=== PATIENT | female | born 1995 | race Two or more races ===

== ENCOUNTER 2019-05-09 19:12 | Emergency (ER) | payer OTHER ==
[2019-05-09] MEDS ORDERED: ONDANSETRON HCL INJ/PF 4 MG/2 ML SDV IV ONE ×2 (19:44→23:07)
[2019-05-09] MEDS ORDERED: NORMAL SALINE 1000 ML 1,000 ML IV ONE (19:44)
[2019-05-09] MEDS ORDERED: FENTANYL CITRATE INJ/PF 100 MCG/2 ML AMPUL IV ONE (19:45)
--- NOTE | 2019-05-09 19:46 | ER Document Report ---
ED Medical Screen (RME) - General Chief Complaint: Abdominal Pain Stated Complaint: UPPER STOMACH PAIN Time Seen by Provider: 05/09/19 19:41 Mode of Arrival: Ambulatory Information source: Patient Notes: Patient presents with right upper quadrant abdominal pain since 130. Patient states pain radiates through to her back. Patient does report nausea and vomiting. No fever, no cough or cold symptoms. Patient denies any urinary symptoms. I have greeted and performed a rapid initial assessment of this patient. A comprehensive ED assessment and evaluation of the patient, analysis of test results and completion of the medical decision making process will be conducted by additional ED providers. - Related Data Allergies/Adverse Reactions: No Known Allergies Allergy (Unverified 05/09/19 19:41) Home Medications: control Physical Exam - Vital signs Vitals: Temp Pulse BP Pulse Ox 98.1 F 116 H 149/80 H 97 05/09/19 19:17 05/09/19 19:17 05/09/19 19:17 05/09/19 19:17 - Abdominal Tenderness: Tender - RUQ Course - Vital Signs Vital signs: Temp Pulse Resp BP Pulse Ox 98.1 F 116 H 149/80 H 97 05/09/19 19:17 05/09/19 19:17 05/09/19 19:17 05/09/19 19:17
[2019-05-09 20:02] LABS: ABSOLUTE BASOPHILS # (AUTO) 0.1 10^3/uL (0.0-0.2); ABSOLUTE EOSINOPHILS # (AUTO) 0.3 10^3/uL (0.0-0.6); ABSOLUTE LYMPHOCYTES (AUTO) 2.9 10^3/uL (0.5-4.7); ABSOLUTE MONOCYTES (AUTO) 0.7 10^3/uL (0.1-1.4); ABSOLUTE NEUT (AUTO) 10.9 10^3/uL (1.7-8.2); BASOPHILS % (AUTO) 0.8 % (0-2); HEMATOCRIT 41.1 % (36.0-47.0); HEMOGLOBIN 13.6 g/dL (12.0-15.5); LYMPHOCYTES % (AUTO) 19.5 % (13-45); MEAN CORPUSCULAR HEMOGLOBIN 26.9 pg (27.0-33.4); MEAN CORPUSCULAR HGB CONC 33.1 g/dL (32.0-36.0); MEAN CORPUSCULAR VOLUME 81 fl (80-97); MONOCYTES % (AUTO) 4.6 % (3-13); PLATELET COUNT 385 10^3/uL (150-450); RED BLOOD COUNT 5.06 10^6/uL (3.72-5.28); RED CELL DISTRIBUTION WIDTH 13.7 % (11.5-14.0); SEGMENTED NEUTROPHILS % (AUTO) 73.1 % (42-78); TOTAL CELLS COUNTED % (AUTO) 100 %; WHITE BLOOD COUNT 14.9 10^3/uL (4.0-10.5)
[2019-05-09 20:19] LABS: ALBUMIN 4.3 g/dL (3.5-5.0); ALKALINE PHOSPHATASE 101 U/L (38-126); ANION GAP 11 (5-19); ASPARTATE AMINO TRANSFERASE 17 U/L (14-36); BILIRUBIN,DIRECT 0.1 mg/dL (0.0-0.4); BILIRUBIN,TOTAL 0.3 mg/dL (0.2-1.3); BLOOD UREA NITROGEN 11 mg/dL (7-20); CALCIUM 9.8 mg/dL (8.4-10.2); CARBON DIOXIDE 24 mmol/L (22-30); CHLORIDE 106 mmol/L (98-107); GLUCOSE 107 mg/dL (75-110); POTASSIUM 4.1 mmol/L (3.6-5.0); TOTAL PROTEIN 7.9 g/dL (6.3-8.2)
[2019-05-09 20:38] LABS: APPEARANCE,URINE CLEAR; BILIRUBIN,URINE NEGATIVE (NEGATIVE); COLOR,URINE YELLOW; GLUCOSE, URINE NEGATIVE (NEGATIVE); KETONES,URINE NEGATIVE (NEGATIVE); LEUKOCYTE ESTERASE,URINE NEGATIVE (NEGATIVE); NITRITE,URINE NEGATIVE (NEGATIVE); PROTEIN,URINE NEGATIVE (NEGATIVE); URINE SPECIFIC GRAVITY 1.025; UROBILINOGEN,URINE NEGATIVE mg/dL (<2.0)
--- NOTE | 2019-05-09 20:45 | RADIOLOGY REPORT (SQ) ---
EXAM DESCRIPTION: XR CHEST 2 VIEWS COMPLETED DATE/TME: 05/09/2019 19:44 CLINICAL HISTORY: 24 years, Female, RUQ pain COMPARISON: None. NUMBER OF VIEWS: TECHNIQUE: LIMITATIONS: None. FINDINGS: No evidence of pulmonary infiltrate or pleural effusion. The heart and mediastinum are unremarkable. Pulmonary vascularity appears normal. IMPRESSION: Normal chest x-ray. copyright 2010 [email or web address]- All Rights Reserved
[2019-05-09] MEDS ORDERED: MORPHINE SULFATE 10 MG/ML INJ IV ONE (21:03)
[2019-05-09] MEDS ORDERED: HYDROMORPHONE HCL INJ/PF 2 MG/ML AMPULE IV ONE (21:50)
--- NOTE | 2019-05-09 22:19 | RADIOLOGY REPORT (SQ) ---
EXAM DESCRIPTION: US ABDOMEN LIMITED COMPLETED DATE/TME: 05/09/2019 19:44 CLINICAL HISTORY: 24 years, Female, RUQ pain COMPARISON: None. TECHNIQUE: Limited right upper quadrant ultrasound LIMITATIONS: None. FINDINGS: Echogenic appearance to the liver consistent with fatty infiltrative change. Cholelithiasis. No gallbladder wall thickening or pericholecystic fluid. Negative sonographic Hernandez sign. CBD measures 3 mm. Visualized pancreas, abdominal aorta, inferior vena cava, right kidney unremarkable. No ascites IMPRESSION: Fatty infiltrative change to the liver. Cholelithiasis. No sonographic evidence for cholecystitis copyright 2010 [employer]- All Rights Reserved
[2019-05-09] MEDS ORDERED: KETOROLAC TROMETHAMINE INJ/PF 30 MG/1 ML SDV IV ONE (22:49)
--- NOTE | 2019-05-09 22:51 | ER Document Report ---
Entered by RITA MONTES SCRIBE 05/09/19 2154 Acting as scribe for:FABIÁN CALVERT IV, MD ED General - General Chief Complaint: Abdominal Pain Stated Complaint: UPPER STOMACH PAIN Time Seen by Provider: 05/09/19 19:41 Mode of Arrival: Ambulatory Information source: Patient, [facility] Records Notes: Patient is a 24 year old female presenting to the emergency department complaining of right upper abdominal pain. Patient states that the pain began at 13:30 today, her last oral intake was breakfast this morning. She states she had a pain similar to this several weeks ago however she has never had a pain this bad before. Patient states she has vomited self inducing, she denies recent fever, chills, or having a history of gallbladder problems. - HPI Notes: Patient is a 24-year-old female who presents complaining of right upper quadrant abdominal pain radiating around to the right side of her back that has been going on for 1 day. Patient states she had a similar pain about 2 weeks ago but has no prior history of gallbladder disease. Patient states she has tried to self induce nausea and vomiting to alleviate the pain that she had in her abdomen. Patient denies fever, chills. - Related Data Allergies/Adverse Reactions: No Known Allergies Allergy (Unverified 05/09/19 19:41) Home Medications: control Past Medical History - General Information source: Patient, [facility] Records - Social History Smoking Status: Never Smoker Cigarette use (# per day): No Chew tobacco use (# tins/day): No Smoking Education Provided: No Family History: Reviewed & Not Pertinent Patient has suicidal ideation: No Patient has homicidal ideation: No Review of Systems - Review of Systems Constitutional: No symptoms reported. denies: Chills, Fever EENT: No symptoms reported Cardiovascular: No symptoms reported Respiratory: No symptoms reported Gastrointestinal: See HPI, Abdominal pain, Vomiting. denies: Nausea Genitourinary: No symptoms reported Female Genitourinary: No symptoms reported Musculoskeletal: No symptoms reported Skin: No symptoms reported Hematologic/Lymphatic: No symptoms reported Neurological/Psychological: No symptoms reported -: Yes All other systems reviewed and negative Physical Exam - Vital signs Vitals: Temp Pulse BP Pulse Ox 98.1 F 116 H 149/80 H 97 05/09/19 19:17 05/09/19 19:17 05/09/19 19:17 05/09/19 19:17 - Notes Notes: Physical Exam: General: Alert, crying. HEENT: Normocephalic. Atraumatic. PERRL. Extraocular movements intact. Oropharynx clear. Neck: Supple. Non-tender. Respiratory: No respiratory distress. Clear and equal breath sounds bilaterally. Cardiovascular: Regular rate and rhythm. Abdominal: Hernandez's sign. Otherwise Non-tender. No distension. Normal Bowel Sounds. Back: No gross abnormalities. Extremities: Moves all four extremities. Upper extremities: Normal inspection. Normal ROM. Lower extremities: Normal inspection. No edema. Normal ROM. Neurological: Normal cognition. AAOx4. Normal speech. Psychological: Normal affect. Normal Mood. Skin: Warm. Dry. Normal color. Course - Re-evaluation Re-evalutation: 05/09/19 22:49 Patient is still complaining of significant sharp abdominal pain. Patient has not received the milligram of Dilaudid that was ordered earlier. This MD spoke to the patient's nurse, the nurse going to give the Dilaudid now along with some Toradol and this MD will reevaluate the patient to see if we are obtaining pain relief. 05/10/19 00:33 Patient states her pain is much better at this point. Diagnosis and follow-up again discussed with patient and patient's spouse who is present in the room. All questions were answered prior to discharge. Emergency signs and symptoms, reasons to return to the ED by calling 911 discussed with patient and patient spouse. - Vital Signs Vital signs: Temp Pulse Resp BP Pulse Ox 98.0 F 88 18 116/71 99 05/10/19 00:16 05/10/19 00:16 05/10/19 00:16 05/10/19 00:16 05/10/19 00:16 - Laboratory Result Diagrams: 05/09/19 19:50 05/09/19 19:50 Laboratory results interpreted by me: 05/09/19 05/09/19 19:50 19:50 WBC 14.9 H MCH 26.9 L Absolute Neuts (auto) 10.9 H Urine Blood SMALL H - Diagnostic Test Radiology reviewed: Reports reviewed Discharge - Discharge Clinical Impression: Cholelithiasis Condition: Good Disposition: HOME, SELF-CARE Instructions: Gallbladder Disease ([facility]) Additional Instructions: Return to the Emergency Department without delay if any worse. HOME CARE INSTRUCTIONS & INFORMATION: Thank you for choosing us for your medical needs. We hope you're satisfied with the care you received. After you leave, you must properly care for your problem and, at the same time, observe its progress. Any condition can change. Some illnesses can change rapidly over hours or days. If your condition worsens, return to the Emergency Department or see your physician promptly. ABOUT YOUR X-RAYS AND EKG'S: If you had an EKG or X-rays taken, they have been read by the Emergency Physician. The X-rays and EKG's will also be read by a Radiologist or Mailroom Messenger within 24 hours. If discrepancies are noted, you will be notified by telephone. Please be certain the ED has a correct telephone number & address where you can be reached. Also, realize that some fractures or abnormalities do not show up on initial X-rays. If your symptoms continue, see your physician. ABOUT YOUR LABORATORY TEST: If you had laboratory tests, the results have been reviewed by the Emergency Physician. Some test results (for example cultures) may not be available for several days. You will be contacted if any test result shows you need additional treatment. Please be certain the ED has a correct telephone number and address where you can be reached. ABOUT YOUR MEDICATIONS: You will receive instructions on how to take your medic ine on the prescription label you receive. Additional information may be provided by the Pharmacy. If you have questions afterwards, call the ED for clarification or further instructions. Some prescribed medications may cause drowsiness. Do not perform tasks such as driving a car or operating machinery without consulting your Pharmacist. If you feel you need a refill of pain medication, your condition will need re-evaluation. Please do not call for a refill of any medication. ABOUT YOUR SIGNATURE: Signature of this document acknowledges to followin. Understanding that you received emergency treatment and that you may be released before al medical problems are known or treated. Please be certain the ED has a correct phone number & address where you can be reached. 2. Acknowledgement that you will arrange for follow-up care as recommended. 3. Authorization for the Emergency Physician to provide information to your follow-up Physician in order to maximize your care. AT ANY TIME, IF YOUR SYMPTOMS CHANGE SIGNIFICANTLY OR WORSEN OR YOU DEVELOP NEW SYMPTOMS, RETURN TO THE EMERGENCY DEPARTMENT IMMEDIATELY FOR RE-EVALUATION. OUR GOAL IS TO PROVIDE EXCELLENT MEDICAL CARE! WE HOPE THAT WE HAVE MET YOUR EXPECTATIONS DURING YOUR EMERGENCY DEPARTMENT VISIT AND THAT YOU FEEL YOU HAVE RECEIVED EXCELLENT CARE! Prescriptions: Oxycodone HCl/Acetaminophen [Percocet 5-325 mg Tablet] 1 tab PO Q6H PRN 3 Days #15 tablet PRN Reason: Ondansetron [Zofran Odt 4 mg Tablet] 1 - 2 tab PO Q4H PRN #20 tab.rapdis PRN Reason: For Nausea/Vomiting Referrals: PHONG PEDERSEN MD [ACTIVE STAFF] - 05/11/19 (CALL ON 05/11/19 TO SCHEDULE FOLLOW UP APPOINTMENT ) I personally performed the services described in the documentation, reviewed and edited the documentation which was dictated to the scribe in my presence, and it accurately records my words and actions.
[2019-05-10 00:19] VITALS: BP 116/71
[2019-05-10] MEDS ORDERED: HYDROCODONE/ACETAMINOPHEN 5-325 MG (6 TAB/ER DISP) PO PRN (00:34)
== END 2019-05-10 00:55 | disposition home or self-care (01) ==
LOC: ER 19:12
DX: K80.20 Calculus of gallbladder without cholecystitis without obstruction (principal); R10.10 Upper abdominal pain, unspecified; R11.10 Vomiting, unspecified
CPT/HCPCS: 96376; 99284; 96361; 96374; 96375; 36415; 83690; 84703; 85025; 80053; 81001; 71046; 76705; J3010; J1885; J2270; J1170; J2405; J7030

== ENCOUNTER 2019-05-27 11:46 | Observation (INO) | payer OTHER ==
[2019-05-25 11:08] LABS: HEMOGLOBIN 13.4 g/dL (12.0-15.5); MEAN CORPUSCULAR HEMOGLOBIN 26.8 pg (27.0-33.4); MEAN CORPUSCULAR HGB CONC 33.6 g/dL (32.0-36.0); MEAN CORPUSCULAR VOLUME 80 fl (80-97); PLATELET COUNT 377 10^3/uL (150-450); RED BLOOD COUNT 5.01 10^6/uL (3.72-5.28); RED CELL DISTRIBUTION WIDTH 13.5 % (11.5-14.0); WHITE BLOOD COUNT 12.2 10^3/uL (4.0-10.5)
[2019-05-25 11:49] LABS: ALBUMIN 3.9 g/dL (3.5-5.0); ALKALINE PHOSPHATASE 100 U/L (38-126); AMYLASE 60 U/L (30-110); ANION GAP 14 (5-19); ASPARTATE AMINO TRANSFERASE 17 U/L (14-36); BILIRUBIN,DIRECT 0.1 mg/dL (0.0-0.4); BILIRUBIN,TOTAL 0.5 mg/dL (0.2-1.3); BLOOD UREA NITROGEN 13 mg/dL (7-20); CALCIUM 9.3 mg/dL (8.4-10.2); CARBON DIOXIDE 23 mmol/L (22-30); CHLORIDE 103 mmol/L (98-107); GLUCOSE 86 mg/dL (75-110); POTASSIUM 4.4 mmol/L (3.6-5.0); TOTAL PROTEIN 7.3 g/dL (6.3-8.2)
[~2019-05-27 11:46] MED LIST: ACETAMINOPHEN 325 MG TABLET PO PRN; CEFAZOLIN SODIUM 1 GM in DEXTROSE 5%-WATER 50 ML IV PRN; DEXAMETHASONE SOD PHOSPHATE INJ 4 MG/1 ML VIAL ONE; GLYCOPYRROLATE 1 MG/5 ML VIAL ONE; KETOROLAC TROMETHAMINE 60 MG/2 ML SDV ONE; LACTATED RINGERS 1000 ML IV PRN; LIDOCAINE 0.5% INJ-PF (5 MG/ML) 50 ML SDV SUBCUT PRN; LIDOCAINE 2% INJ-PF (20 MG/ML) 2 ML AMPUL ONE; METOCLOPRAMIDE HCL INJ/PF 10 MG/2 ML SDV ONE; METRONIDAZOLE 500 MG/NS RTU 500 MG/100 ML RTUPB IV ONE; METRONIDAZOLE 500 MG/NS RTU 500 MG/100 ML RTUPB IV PRN; NEOSTIGMINE METHYLSULFATE 10 MG/10 ML VIAL ONE; ONDANSETRON HCL INJ/PF 4 MG/2 ML SDV ONE; ROCURONIUM BROMIDE INJ 50 MG/5 ML VIAL IV ONE
[2019-05-27] MEDS ORDERED: BUPIVACAINE HCL 0.25 % INJ/PF (2.5 MG/1 ML) 30 ML VIAL ONE (15:36)
[2019-05-27] MEDS ORDERED: HYDROMORPHONE HCL INJ/PF 2 MG/ML AMPULE ONE (15:37)
[2019-05-27] MEDS ORDERED: MIDAZOLAM 2 MG/2 ML INJ ONE ×2 (15:38→21:54)
[2019-05-27] MEDS ORDERED: PROPOFOL INJ 200 MG/20 ML VIAL IV ONE ×2 (15:38→21:54)
[2019-05-27] MEDS ORDERED: SUGAMMADEX SODIUM 200 MG/2 ML SDV IV ONE (15:38)
[2019-05-27] MEDS ORDERED: BUPIVACAINE HCL 0.25 % INJ/PF (2.5 MG/1 ML) 30 ML VIAL INJ ONE (16:22)
[2019-05-27] MEDS ORDERED: ONDANSETRON HCL INJ/PF 4 MG/2 ML SDV IV PRN ×3 (16:23→23:18)
[2019-05-27] MEDS ORDERED: PROMETHAZINE HCL INJ 25 MG/1 ML VIAL IV PRN ×4 (16:23→22:36)
[2019-05-27] MEDS ORDERED: FENTANYL CITRATE INJ/PF 100 MCG/2 ML AMPUL IV PRN ×6 (16:23→22:36)
[2019-05-27] MEDS ORDERED: OXYCODONE-ACETAMINOPHEN 5-325 MG TABLET PO PRN ×4 (16:23→23:18)
[2019-05-27] MEDS ORDERED: MEPERIDINE HCL/PF INJ 25 MG/1 ML DISP.SYRIN IV PRN (16:23)
[2019-05-27] MEDS ORDERED: DIPHENHYDRAMINE HCL 50 MG/ML VIAL IV PRN ×2 (16:23→22:36)
--- NOTE | 2019-05-27 16:38 | Operative Report ---
Nonrecallable Operative Report DATE OF SURGERY: 05/27/19 PREOPERATIVE DIAGNOSIS: symptomatic cholelithiasis POSTOPERATIVE DIAGNOSIS: symptomatic cholelithiasis OPERATION: laparoscopic cholecystectomy SURGEON: BRITNI ROQUE ANESTHESIA: GA TISSUE REMOVED OR ALTERED: gallbladder COMPLICATIONS: none ESTIMATED BLOOD LOSS: 25cc INTRAOPERATIVE FINDINGS: see dictation PROCEDURE: After obtaining informed consent, the patient was taken to the operating room. General Anesthesia was induced; the arms were extended, and the abdomen was exposed, and prepped and draped in a sterile fashion. Instrumentation was set up for laparoscopic cholecystectomy. Surgical plan and surgical timeout were conducted. A vertical incision was made above the umbilicus, and a verres needle was inserted uneventfully into the peritoneal cavity. Pneumoperitoneum was established. The verres needle was removed and a10mm trocar was inserted and a 10mm laparoscope was inserted. Visualization of the peritoneal cavity confirmed safe uneventful entry. Under direct visualization 3 additional 5 mm ports were est ablished, one in the subxiphoid position and second in the subcostal position. Visualization of the hepatobiliary anatomy revealed no anatomic variations. A grasper was placed on the fundus of the gallbladder and the gallbladder is elevated over the right surface of the liver; a second grasper was used to grasp the infundibulum of the gallbladder. The neck of the gallbladder and junction with the cystic duct was dissected out. The Cystic artery was in its usual location medial and cephalad to the cystic duct. The cystic artery was surrounded with a right angle clamp, clipped twice proximally and divided with laparoscopic scissors. We now opened the triangle of Calot by dividing the peritoneal reflection on both the medial and lateral sides of the cystic duct infundibular junction. The critical view was obtained. We now milked the cystic duct of any possible stones, clipped the cystic duct approximately 2 times once distally and divided with scissors. The gallbladder was now removed from the undersurface of the liver using hook cautery dissection. Graspers were repositioned and the gallbladder was removed uneventfully from the abdominal cavity through the super umbilical port site incision. The specimen was examined, then passed off to pathology for permanent analysis. We returned to the peritoneal cavity check for bleeding, and evidence of bile leak, and there was none. We Confirmed satisfactory placement of clips on cystic duct and cystic artery were secured . At this point we felt the operation was complete. The subcutaneous tissue was then anesthetized with quarter percent Marcaine Sponge and needle counts are correct. All ports removed under direct visualization pneumoperitoneum evacuated, and 5 mm port wounds closed with 3-0 Vicryl suture, benzoin and Steri-Strips. The patient was extubated, and taken to the recovery room in stable condition.
--- NOTE | 2019-05-27 16:39 | Discharge Summary ---
Discharge Summary (SDC) - Discharge Final Diagnosis: symptomatic cholelithasis Date of Surgery: 05/27/19 Discharge Date: 05/27/19 Condition: Good Discharge Activity: Activity As Tolerated, No Lifting Over 10 Pounds, No Lifting/Push/Pulling Report the Following to Your Physician Immediately: Shortness of Breath, Vomiting, Fever over 101 Degrees - pt needs a f/u with me in 7-10 days.
[2019-05-27] MEDS: ACETAMINOPHEN 1,000 MG/100 ML RTUPB IV ONE ×2 (17:00→17:05)
[2019-05-27] MEDS ORDERED: FENTANYL CITRATE INJ/PF 100 MCG/2 ML AMPUL ONE ×2 (17:20→21:54)
[2019-05-27] MEDS ORDERED: PROMETHAZINE HCL INJ 25 MG/1 ML VIAL ONE (17:27)
[2019-05-27 21:16] LABS: HEMATOCRIT 32.2 % (36.0-47.0); MEAN CORPUSCULAR HEMOGLOBIN 26.4 pg (27.0-33.4); MEAN CORPUSCULAR HGB CONC 32.8 g/dL (32.0-36.0); MEAN CORPUSCULAR VOLUME 81 fl (80-97); RED BLOOD COUNT 4.01 10^6/uL (3.72-5.28); RED CELL DISTRIBUTION WIDTH 13.4 % (11.5-14.0)
[2019-05-27 21:18] LABS: HEMOGLOBIN 10.6 g/dL (12.0-15.5)
[2019-05-27 21:24] LABS: WHITE BLOOD COUNT 38.5 10^3/uL (4.0-10.5)
[2019-05-27 21:40] LABS: ABSOLUTE LYMPHOCYTES# (MANUAL) 2.3 10^3/uL (0.5-4.7); BAND NEUTROPHILS % (MANUAL) 4 % (3-5); BASOPHILS % (MANUAL) 0 % (0-2); EOSINOPHILS % (MANUAL) 0 % (0-6); LYMPHOCYTES % (MANUAL) 6 % (13-45); MONOCYTES % (MANUAL) 0 % (3-13); SEGMENTED NEUTROPHILS % (MAN) 90 % (42-78); TOTAL CELLS COUNTED 100
[2019-05-27 21:42] LABS: PLATELET CLUMPS PRESENT; PLATELET COUNT 483 10^3/uL (150-450)
[2019-05-27 21:43] LABS: PLATELET COMMENT INCREASED
[2019-05-27] MEDS ORDERED: BUPIVACAINE INJ/PF LIPOSOME/PF 266 MG/20 ML SDV ONE (21:54)
--- NOTE | 2019-05-27 23:33 | Operative Report ---
Nonrecallable Operative Report DATE OF SURGERY: 05/27/19 PREOPERATIVE DIAGNOSIS: Postoperative bleeding POSTOPERATIVE DIAGNOSIS: Postoperative bleeding OPERATION: Agnostic laparoscopy abdominal washout control of postoperative bleeding SURGEON: BRITNI ROQUE ANESTHESIA: GA TISSUE REMOVED OR ALTERED: None COMPLICATIONS: None ESTIMATED BLOOD LOSS: 1000 cc INTRAOPERATIVE FINDINGS: See dictation PROCEDURE: Indications for procedure this is a 24-year-old female who is approximately 6 hours post laparoscopic cholecystectomy for symptomatic cholelithiasis. She was noted in recovery room to become hypotensive and a repeat hemoglobin showed a three-point drop. She was complaining of the nausea and shoulder pain. After assessing the patient I felt that she is undergoing postoperative hemorrhage and therefore scheduled her for this procedure. Procedure patient was brought to the operating room awake alert stable condition placed in the operative table supine position induced under general anesthesia intubated after appropriate timeout site verification the abdominal wall was prepped and draped in usual sterile fashion. The infraumbilical incision site was opened with a Metzenbaum scissors dividing the Biosyn suture that was previously placed and the varies needle was placed into the abdominal cavity the abdomen was insufflated 6 L of CO2 gas. A 10 mm port was placed into this incision similarly the 3 other 5 mm incisions were cannulated with 5 mm ports. Intra-abdominal visualization revealed no evidence of Veress needle or trocar injury however there was large amount of clot noted over on top of the omentum as well as in the left upper quadrant and in the pelvis. In the right upper quadrant underneath the liver and the gallbladder fossa there was also a large amount of clot that appeared to be fresh. This was suctioned free and we identified the clip on the cystic artery and noted to be intact without evidence of any leakage. Liver bed also appeared to be relatively dry except for a couple of small areas at the inferior aspect which were controlled with Bovie cautery. Once this was done I spent some time removing all the clot from the peritoneal surfaces as well as on top of the omentum in the right and left upper quadrant in the pelvis. We removed approximately 1000 cc of old clot. The abdominal cavity was then irrigated with normal saline suctioned dry irrigated the pelvis the left and right upper quadrant in the gallbladder fossa. We went back to the gallbladder fossa and examined it thoroughly and noted no further evidence of bleeding. Because there was no active bleeding I elected to leave a Jarod-Ritter drain in the gallbladder fossa and brought out through the 5 mm port site in the right lower quadrant we then released the pneumoperitoneum we closed the umbilical port site with 0 Vicryl in the fascia then closed all the other 3 skin incisions with intracuticular Biosyn and tacked the Jarod-Ritter drain to the right lower quadrant incision with 1 stitch of 2-0 nylon sterile dressing was applied which completed the procedure patient was awakened in the operating operating room extubated transferred recovery in stable condition Estimated blood loss was 1000 cc sponge and needle counts were correct x2
[2019-05-27] MEDS ORDERED: ACETAMINOPHEN 1,000 MG/100 ML RTUPB IV ONE (23:41)
[2019-05-27] MEDS ORDERED: MORPHINE SULFATE 10 MG/ML INJ ONE (23:41)
[2019-05-28] MEDS: POTASSI CL 20 MEQ/D5-1/2NS 1L 1,000 ML IV PRN ×2 (01:09→09:33)
[2019-05-28] MEDS: ACETAMINOPHEN INJ/PF 1000 MG/100 ML SDV IV SCH ×2 (01:09→05:51)
[2019-05-28] MEDS: MORPHINE SULFATE 10 MG/ML INJ IV PRN ×2 (01:52→08:00)
[2019-05-28 04:54] VITALS: BP 97/51
[2019-05-28] MEDS ORDERED: CEFAZOLIN 1 GM/D5W RTU 1 GM/50 ML RTUPB IV SCH (06:00)
[2019-05-28] MEDS ORDERED: CEFAZOLIN 1 GM/D5W RTU 1 GM/50 ML RTUPB IV ONE (06:01)
[2019-05-28 07:03] LABS: ABSOLUTE LYMPHOCYTES (AUTO) 1.4 10^3/uL (0.5-4.7); ABSOLUTE MONOCYTES (AUTO) 0.5 10^3/uL (0.1-1.4); ABSOLUTE NEUT (AUTO) 12.9 10^3/uL (1.7-8.2); BASOPHILS % (AUTO) 0.2 % (0-2); HEMATOCRIT 25.2 % (36.0-47.0); HEMOGLOBIN 8.6 g/dL (12.0-15.5); LYMPHOCYTES % (AUTO) 9.4 % (13-45); MEAN CORPUSCULAR HEMOGLOBIN 27.4 pg (27.0-33.4); MEAN CORPUSCULAR HGB CONC 34.3 g/dL (32.0-36.0); MEAN CORPUSCULAR VOLUME 80 fl (80-97); MONOCYTES % (AUTO) 3.7 % (3-13); PLATELET COUNT 300 10^3/uL (150-450); RED BLOOD COUNT 3.16 10^6/uL (3.72-5.28); RED CELL DISTRIBUTION WIDTH 13.5 % (11.5-14.0); SEGMENTED NEUTROPHILS % (AUTO) 86.7 % (42-78); TOTAL CELLS COUNTED % (AUTO) 100 %; WHITE BLOOD COUNT 14.9 10^3/uL (4.0-10.5)
[2019-05-28] MEDS: FAMOTIDINE INJ/PF 20 MG/2 ML SDV IV SCH ×2 (07:41→09:32)
[2019-05-28 08:51] LABS: PATH REVIEW PATHOLOGIST REVIEWED
--- NOTE | 2019-05-28 09:04 | PDOC DISCHARGE SUMMARY ---
General - Admit/Disc Date/PCP Admission Date/Primary Care Provider: 05/27/19 23:47 Discharge Date: 05/28/19 - Discharge Diagnosis Final Diagnosis: symptomatic cholelilthiasis, post op bleeding - Assessment Summary: She is a 24-year-old female who was admitted for elective laparoscopic cholecystectomy on the day of admission. She was taken to the operating room where she underwent a laparoscopic cholecystectomy. Postoperatively she initially did well however became somewhat hypotensive in the recovery room approximately 4 to 6 hours postop and was noted to have a low hemoglobin. Later in the evening she was taken back to the operating for diagnostic laparoscopy at which time there was a approximately 800 cc of blood removed from the abdominal cavity control of bleeding from the liver edge. She was admitted and watched overnight with a Jarod-Ritter drain in place the following morning she was doing well the Jarod-Ritter drain had minimal drainage and her hemoglobin remained stable was removed and she was started on a clear liquid diet which was advanced to full liquid diet. She is tolerating full liquid diet well she is able to ambulate without dizziness and ready for discharge home today. He will be followed up in 7 to 10 days after discharge. - Additional Information Resuscitation Status: Full Code - Patient needs a follow-up in 7 to 10 days after discharge with me in surgical clinic. Discharge Diet: As Tolerated Discharge Activity: Activity As Tolerated, No Lifting Over 10 Pounds, No tub bath, Walk Frequently Home Medications: Norgestimate-Ethinyl Estradiol [Norg-Ee 0.18-0.215-0.25/0.025] 1 each PO DAILY 05/27/19 History of Present Illiness History of Present Illness: NATALIE ARRIAGA is a 24 year old female Physical Exam Vital Signs: Temp Pulse Resp BP Pulse Ox 98 F 104 H 17 97/51 L 96 05/28/19 04:48 05/28/19 04:48 05/28/19 04:48 05/28/19 04:48 05/28/19 04:48 Intake & Output 05/27/19 05/28/19 05/29/19 06:59 06:59 06:59 Intake Total 5550 Output Total 2825 Balance 2725 Weight 112.1 kg Results Laboratory Results: WBC 14.9 10^3/uL (4.0-10.5) H 05/28/19 05:03 RBC 3.16 10^6/uL (3.72-5.28) L 05/28/19 05:03 Hgb 8.6 g/dL (12.0-15.5) L 05/28/19 05:03 Hct 25.2 % (36.0-47.0) L 05/28/19 05:03 MCV 80 fl (80-97) 05/28/19 05:03 MCH 27.4 pg (27.0-33.4) 05/28/19 05:03 MCHC 34.3 g/dL (32.0-36.0) 05/28/19 05:03 RDW 13.5 % (11.5-14.0) 05/28/19 05:03 Plt Count 300 10^3/uL (150-450) 05/28/19 05:03 Lymph % (Auto) 9.4 % (13-45) L 05/28/19 05:03 [place] % (Auto) 3.7 % (3-13) 05/28/19 05:03 Eos % (Auto) 0.0 % (0-6) 05/28/19 05:03 Baso % (Auto) 0.2 % (0-2) 05/28/19 05:03 Absolute Neuts (auto) 12.9 10^3/uL (1.7-8.2) H 05/28/19 05:03 Absolute Lymphs (auto) 1.4 10^3/uL (0.5-4.7) 05/28/19 05:03 Absolute Monos (auto) 0.5 10^3/uL (0.1-1.4) 05/28/19 05:03 Absolute Eos (auto) 0.0 10^3/uL (0.0-0.6) 05/28/19 05:03 Absolute Basos (auto) 0.0 10^3/uL (0.0-0.2) 05/28/19 05:03 Total Counted 100 05/27/19 21:01 Seg Neutrophils % 86.7 % (42-78) H 05/28/19 05:03 Seg Neuts % (Manual) 90 % (42-78) H 05/27/19 21:01 Band Neutrophils % 4 % (3-5) 05/27/19 21:01 Lymphocytes % (Manual) 6 % (13-45) L 05/27/19 21:01 Monocytes % (Manual) 0 % (3-13) L 05/27/19 21:01 Eosinophils % (Manual) 0 % (0-6) 05/27/19 21:01 Basophils % (Manual) 0 % (0-2) 05/27/19 21:01 Abs Neuts (Manual) 36.2 10^3/uL (1.7-8.2) H 05/27/19 21:01 Abs Lymphs (Manual) 2.3 10^3/uL (0.5-4.7) 05/27/19 21:01 Abs Monocytes (Manual) 0.0 10^3/uL (0.1-1.4) L 05/27/19 21:01 Absolute Eos (Manual) 0.0 10^3/uL (0.0-0.6) 05/27/19 21:01 Abs Basophils (Manual) 0.0 10^3/uL (0.0-0.2) 05/27/19 21:01 Clumped Platelets PRESENT 05/27/19 21:01 Platelet Comment INCREASED 05/27/19 21:01 Sodium 140.1 mmol/L (137-145) 05/25/19 10:35 Potassium 4.4 mmol/L (3.6-5.0) 05/25/19 10:35 Chloride 103 mmol/L (98-107) 05/25/19 10:35 Carbon Dioxide 23 mmol/L (22-30) 05/25/19 10:35 Anion Gap 14 (5-19) 05/25/19 10:35 BUN 13 mg/dL (7-20) 05/25/19 10:35 Creatinine 0.74 mg/dL (0.52-1.25) 05/25/19 10:35 Est GFR ( Amer) > 60 (>60) 05/25/19 10:35 Est GFR (MDRD) Non-Af > 60 (>60) 05/25/19 10:35 Glucose 86 mg/dL (75-110) 05/25/19 10:35 Calcium 9.3 mg/dL (8.4-10.2) 05/25/19 10:35 Total Bilirubin 0.5 mg/dL (0.2-1.3) 05/25/19 10:35 Direct Bilirubin 0.1 mg/dL (0.0-0.4) 05/25/19 10:35 Neonat Total Bilirubin Not Reportable 05/25/19 10:35 Neonat Direct Bilirubin Not Reportable 05/25/19 10:35 Neonat Indirect Bili Not Reportable 05/25/19 10:35 AST 17 U/L (14-36) 05/25/19 10:35 ALT 16 U/L (<35) 05/25/19 10:35 Alkaline Phosphatase 100 U/L (38-126) 05/25/19 10:35 Total Protein 7.3 g/dL (6.3-8.2) 05/25/19 10:35 Albumin 3.9 g/dL (3.5-5.0) 05/25/19 10:35 Amylase 60 U/L (30-110) 05/25/19 10:35 Urine HCG, Qual NEGATIVE (NEGATIVE) 05/27/19 12:40 Slides for Path Review PATHOLOGIST REVIEWED 05/27/19 21:01 Blood Type O POSITIVE 05/25/19 10:35 Antibody Screen NEGATIVE 05/25/19 10:35
[2019-05-28] MEDS ORDERED: CEFAZOLIN SODIUM 1 GM in DEXTROSE 5%-WATER 50 ML IV SCH (14:00)
[2019-05-28] MEDS ORDERED: ACETAMINOPHEN 1,000 MG/100 ML RTUPB IV SCH (18:00)
== END 2019-05-28 13:05 | disposition home or self-care (01) ==
LOC: OROUT 11:46 → 4N 23:47
PROVIDERS: ADMIT Surgery; ATTEND Surgery
DX: K80.10 Calculus of gallbladder with chronic cholecystitis without obstruction (principal); K91.840 Postprocedural hemorrhage of a digestive system organ or structure following a digestive system procedure; Y83.9 Surgical procedure, unspecified as the cause of abnormal reaction of the patient, or of later complication, without mention of misadventure at the time of the procedure; I95.81 Postprocedural hypotension; D64.9 Anemia, unspecified; E66.9 Obesity, unspecified; Z83.79 Family history of other diseases of the digestive system
CPT/HCPCS: 86900; 86901; 36415 ×3; 86850; 82150; 85025 ×2; 85027; 81025; 80076; 80048; 88304 ×2; 00790; 47562; 35840; G0378 ×2; J2250; J0690 ×2; J3490 ×4; J1100; J1885; J3010; J2765; J2270 ×2; J2710; J1170; J3480; J2550; J2405; J7060; J2704; S0028; J0131 ×2; 790; C9290